=== PATIENT | female | born 1975 | race Asian ===

== ENCOUNTER 2016-11-26 15:41 | Emergency (ER) | payer SELFPAY ==
[~2016-11-26] VITALS: Ht 162.6 cm; Wt 58.0 kg
[~2016-11-26 15:41] MED LIST: ASPI-825 PO; LISINOPRIL; METF500T4 PO; SIMV40TA5 PO
[2016-11-26 17:17] LABS: GLUCOSE,POINT OF CARE 159 MG/DL (70-110)
[2016-11-26] MEDS ORDERED: EMPA25TA PO (17:24)
[2016-11-26] MEDS ORDERED: LOSA50TA37 PO (17:25)
[2016-11-26] MEDS ORDERED: ALPR0.5T8 PO (17:25)
[2016-11-26] MEDS ORDERED: ATOR40TA28 PO (17:25)
[2016-11-26 18:52] LABS: GLUCOSE,POINT OF CARE 154 MG/DL (70-110)
[2016-11-26 22:30] VITALS: BP 128/76
[2016-11-26] MEDS ORDERED: KETOROLAC TROMETHAMINE 60 MG/2 ML VIAL IM ONE (23:15)
== END 2016-11-26 23:26 | disposition home or self-care (01) ==
LOC: EMS 15:43
DX: S16.1XXA Strain of muscle, fascia and tendon at neck level, initial encounter (principal); S29.012A Strain of muscle and tendon of back wall of thorax, initial encounter; S39.012A Strain of muscle, fascia and tendon of lower back, initial encounter; E11.9 Type 2 diabetes mellitus without complications; E78.00 Pure hypercholesterolemia, unspecified; I10 Essential (primary) hypertension; V43.62XA Car passenger injured in collision with other type car in traffic accident, initial encounter; Y93.89 Activity, other specified; Y92.89 Other specified places as the place of occurrence of the external cause; Y99.8 Other external cause status
CPT/HCPCS: 72050; 73030; 82962; 96372; 99284; J1885